=== PATIENT | female | born 1970 | race Caucasian/White ===

== ENCOUNTER → 2017-12-11 | Outpatient (CLI) | payer BC | LOC: MC.RAD 10:34 | DX: Z12.31 Encounter for screening mammogram for malignant neoplasm of breast (principal) ==

== ENCOUNTER → 2017-12-15 | Outpatient (CLI) | payer BC | LOC: MC.RAD 08:09 | DX: D24.2 Benign neoplasm of left breast (principal); N64.89 Other specified disorders of breast ==

== ENCOUNTER → 2018-05-21 | Outpatient (CLI) | payer BC | LOC: COL.LAB 11:36 | DX: R19.7 Diarrhea, unspecified (principal); R10.9 Unspecified abdominal pain; R53.83 Other fatigue ==

== ENCOUNTER → 2018-06-12 | Outpatient (CLI) | payer BC | LOC: COL.RAD 06:38 | DX: K44.9 Diaphragmatic hernia without obstruction or gangrene (principal); K58.9 Irritable bowel syndrome, unspecified | CPT/HCPCS: A9541 ==

== ENCOUNTER → 2018-10-05 | Outpatient (CLI) | payer OTHER | LOC: COL.RAD 09:00 | DX: S83.8X1D Sprain of other specified parts of right knee, subsequent encounter (principal); S76.011D Strain of muscle, fascia and tendon of right hip, subsequent encounter; S43.401D Unspecified sprain of right shoulder joint, subsequent encounter; M75.21 Bicipital tendinitis, right shoulder; M19.011 Primary osteoarthritis, right shoulder; W18.31XD Fall on same level due to stepping on an object, subsequent encounter | CPT/HCPCS: A9585; Q9967 ==

== ENCOUNTER 2018-10-10 15:31 | Outpatient (RCR) | payer OTHER | END 2018-10-16 15:19 | LOC: WSOH 15:31 | DX: S83.8X1A Sprain of other specified parts of right knee, initial encounter (principal); S76.011A Strain of muscle, fascia and tendon of right hip, initial encounter; S43.401A Unspecified sprain of right shoulder joint, initial encounter; W18.31XA Fall on same level due to stepping on an object, initial encounter | CPT/HCPCS: G0283-GP ==

== ENCOUNTER 2018-11-12 14:46 | Outpatient (RCR) | payer OTHER | END 2018-11-26 09:59 | disposition home or self-care (01) | LOC: WSOH 14:46 | DX: S83.8X1D Sprain of other specified parts of right knee, subsequent encounter (principal); S76.011D Strain of muscle, fascia and tendon of right hip, subsequent encounter; S43.401D Unspecified sprain of right shoulder joint, subsequent encounter; F17.210 Nicotine dependence, cigarettes, uncomplicated; Z79.899 Other long term (current) drug therapy ==

== ENCOUNTER → 2019-01-14 | Outpatient (CLI) | payer BC | LOC: MC.RAD 14:51 | DX: Z12.31 Encounter for screening mammogram for malignant neoplasm of breast (principal) ==

== ENCOUNTER → 2020-01-17 | Outpatient (CLI) | payer BC | LOC: MC.RAD 06:59 | DX: Z12.31 Encounter for screening mammogram for malignant neoplasm of breast (principal) ==

== ENCOUNTER → 2021-11-11 | Outpatient (CLI) | payer BC | LOC: MC.RAD 10:55 | DX: Z12.31 Encounter for screening mammogram for malignant neoplasm of breast (principal) ==

== ENCOUNTER 2022-01-05 14:16 | Outpatient (RCR) | payer OTHER | END 2022-01-26 | disposition home or self-care (01) | LOC: WSOH | DX: S60.410D Abrasion of right index finger, subsequent encounter (principal); S00.31XD Abrasion of nose, subsequent encounter; F41.9 Anxiety disorder, unspecified; K21.9 Gastro-esophageal reflux disease without esophagitis; T78.1XXA Other adverse food reactions, not elsewhere classified, initial encounter; Z90.49 Acquired absence of other specified parts of digestive tract; Z90.710 Acquired absence of both cervix and uterus; Z98.890 Other specified postprocedural states; W54.0XXD Bitten by dog, subsequent encounter; Y99.0 Civilian activity done for income or pay ==

== ENCOUNTER → 2022-09-22 | Outpatient (CLI) | payer BC | LOC: COL.RAD 06:53 | DX: Z12.2 Encounter for screening for malignant neoplasm of respiratory organs (principal); Z87.891 Personal history of nicotine dependence ==

== ENCOUNTER → 2022-10-26 | Outpatient (CLI) | payer BC | LOC: COL.RAD 11:04 | DX: R10.9 Unspecified abdominal pain (principal); G89.29 Other chronic pain; R10.2 Pelvic and perineal pain; Z90.49 Acquired absence of other specified parts of digestive tract; Z90.710 Acquired absence of both cervix and uterus; Z87.19 Personal history of other diseases of the digestive system | CPT/HCPCS: Q9967 ==